=== PATIENT | female | born 1990 | race Caucasian/White ===

== ENCOUNTER 2020-04-23 18:56 | Inpatient (IN) | payer MEDICAID ==
[~2020-04-23] VITALS: Ht 172.7 cm; Wt 104.3 kg
--- NOTE | ~2020-04-23 | EC ---
PATIENT:KIRILL NORTON DATE OF SERVICE: 04/23/20 SEX: F MEDICAL RECORD: [id number] DATE OF : [birth year] LOCATION:[facility] AGE OF PATIENT: 29 ADMISSION DATE: 04/23/20 REFERRING PHYSICIAN: INTERPRETING PHYSICIAN: SEBASTIÁN GARCIA MD ECHOCARDIOGRAM REPORT ECHO CHARGES 4 ECHO COMPLETE Date: 04/24/20 CLINICAL DIAGNOSIS: ASSESS FOR VEGATATION/ ABCESS IN R LEG ECHOCARDIOGRAPHIC MEASUREMENTS (adult normal given) AC root (d.<3.7cm) 3.1 cm LV Septum d (<1.2 cm> 1.0 cm Valve Excursion 1.2 cm LV Septum (systole) 1.2 cm Left Atria (s.<4.0cm> 4.0 cm LVPW d(<1.2cm) 1.4 cm RV (d.<2.3cm) 4.2 cm LVPW (sytole) 1.6 cm LV diastole(<5.6CM) 4.4 cm MV E-F(>70mm/sec) cm LV systole 3.0 cm LVOT Diameter 1.8 cm MV exc.(>10mm) 1.8 cm Est.ejection fraction (50-75%) % DOPPLER: LVIT cm/sec A 54.0 cm/sec E 99.0 cm/sec LA cm/sec RVSP 17 mmHg LVOT 116 cm/sec AOP1/2T m/s Asc. Ao 118 cm/sec RVOT 83 cm/sec RA cm/sec PA 117 cm/sec AV Gradient Peak 5.57 mmHg AV Mean 3.22 mmHg AV Area 3.0 cm MV Gradient Peak 6.54 mmHg MV Mean 2.66 mmHg MV Area cm COMMENTS: Ramp Service Man: 2 SABRINA STEINER Call Center Associate: 3 Dr. Yeung TAPE# PACS Pericardial Effusion N DATE OF SERVICE: Adequate 2D, color flow imaging, spectral Doppler, and M-Mode. No LVH. LV internal dimension is normal. Wall motion is normal. EF is greater than or equal to 55%. Aortic valve is tricuspid with good valve excursion. No evidence of stenosis by Doppler interrogation. Left atrium is normal. Mitral valve shows no prolapse. Trivial MR. Right-sided chambers are grossly normal. Trivial TR. No evidence of vegetation in all 4 cardiac valves. ECHOCARDIOGRAM REPORT [id number] KIRILL NORTON TRANSINT:[id number] Voice Confirmation ID: [id number] DOCUMENT ID: [id number] SEBASTIÁN GARCIA MD CC: [id number] DICTATION DATE: 04/25/20 100 MEDICAL INSURANCE CODER: 04/25/20 1348 ADM IN [facility] [address] [id number]
--- NOTE | ~2020-04-23 | OP ---
PATIENT NAME: KIRILL NORTON MEDICAL RECORD: [id number] :86 LOCATION:[id number] ADMISSION DATE:04/23/20 SURGEON: EPHRAIM PAULINO MD DATE OF OPERATION: 04/24/2020 PREOPERATIVE DIAGNOSES: 1. Cellulitis/abscess of the right lower extremity. 2. Anxiety disorder. POSTOPERATIVE DIAGNOSES: 1. Cellulitis/abscess of the right lower extremity. 2. Anxiety disorder. PROCEDURE: I&D of the right lower extremity abscess. SURGEON: Ephraim Paulino MD REPORT OF PROCEDURE: The patient's right medial calf was prepped and draped in sterile fashion. A 10 mL of 1% lidocaine with epinephrine was infused into the surrounding tissues. A transverse incision was made overlying the area of necrotic fluctuance and there was a perales of purulent material. Cultures were taken times 2. We then irrigated out the wound with peroxide and packed the wound with peroxide-soaked 4 x 4s. A dry 4 x 4 was applied over this followed by tape. COMPLICATIONS: None. CONDITION: Stable. ANESTHESIA: Local. BLOOD LOSS: Minimal. Procedure done at the bedside. TRANSINT:[id number] Voice Confirmation ID: [id number] DOCUMENT ID: [id number] EPHRAIM PAULINO MD CC: [id number] DICTATION DATE: 04/24/20 1205 DRUM DRIER OPERATOR: 04/24/20 1610 ADM IN [place] [place] [address] [place] [address]
[2020-04-23] MEDS ORDERED: BUSPAR5 MG PO (19:05)
[2020-04-23 19:30] LABS: BASOPHILS 0.1 % (0-2); EOSINOPHILS 0.7 % (0-7); IMMATURE GRANULOCYTES 0.1 % (0-5); LYMPHOCYTES 11.7 % (15-50); MCH 29.9 pg (26.0-34.0); MCHC 32.6 g/dL (31.0-37.0); MCV 91.7 fL (80.0-100.0); MEAN PLATELET VOLUME 9.4 fL (7.4-10.4); NEUTROPHILS 81.4 % (40-80); RBC 4.69 10x6/uL (4.00-5.40); RDW 13.8 % (11.5-14.5); WBC 13.5 10x3/uL (4.8-10.8)
[2020-04-23 19:38] LABS: ANION GAP 10.5 mmol/L (8-16); CARBON DIOXIDE 28.3 mmol/L (21.0-32.0); POTASSIUM - SERUM 3.8 mmol/L (3.5-5.1)
[2020-04-23 19:44] LABS: ALBUMIN 3.7 g/dL (3.4-5.0); BILIRUBIN - TOTAL 0.33 mg/dL (0.2-1.3)
[2020-04-23 19:45] LABS: HCG SERUM NEGATIVE (NEGATIVE)
[2020-04-23 19:53] LABS: PLATELET COUNT 316 10x3/uL (130-400)
[2020-04-23 21:19] LABS: APTT 30.2 SECONDS (22.8-39.4); INR 0.99 (0.85-1.17)
[2020-04-23 22:19] LABS: UDS - AMPHET POSITIVE QUAL (NEGATIVE); UDS - BARB NEGATIVE QUAL (NEGATIVE); UDS - BENZO NEGATIVE QUAL (NEGATIVE); UDS - COCAINE NEGATIVE QUAL (NEGATIVE); UDS - OPIATE NEGATIVE QUAL (NEGATIVE); UDS - PCP NEGATIVE QUAL (NEGATIVE); UDS - THC NEGATIVE QUAL (NEGATIVE)
[2020-04-23] MEDS ORDERED: BUSPIRONE HCL30 MG PO (23:05)
[2020-04-23] MEDS ORDERED: GABAPENTIN300 MG PO (23:05)
[2020-04-23] MEDS ORDERED: HYDROXYZINE HCL50 MG PO (23:06)
[2020-04-23 23:34] VITALS: BP 129/80; Ht 172.7 cm; Wt 104.3 kg
[2020-04-24] VITALS: BP 129/80
[2020-04-24 04:00] VITALS: BP 123/57
[2020-04-24 05:08] LABS: HEMATOCRIT 37.7 % (36.0-48.0); HEMOGLOBIN 12.2 g/dL (12-16); IMMATURE GRANULOCYTES 0.2 % (0-5); MCH 29.4 pg (26.0-34.0); MCHC 32.4 g/dL (31.0-37.0); MCV 90.8 fL (80.0-100.0); MEAN PLATELET VOLUME 9.6 fL (7.4-10.4); PLATELET COUNT 309 10x3/uL (130-400); RBC 4.15 10x6/uL (4.00-5.40); RDW 13.7 % (11.5-14.5); WBC 12.1 10x3/uL (4.8-10.8)
[2020-04-24 05:20] LABS: EOSINOPHILS 2 % (0-7); LYMPHOCYTES 18 % (15-50); MONOCYTES 6 % (2-11); NEUTROPHILS 72 % (40-80); PLATELET ESTIMATE NORMAL
[2020-04-24 05:34] LABS: ALKALINE PHOSPHATASE 70 U/L (30-120); ALT (SGPT) 21 U/L (10-68); BILIRUBIN - TOTAL 0.17 mg/dL (0.2-1.3); CALC OSMOLALITY 276 mosm/kg (275-300); CALCIUM 8.2 mg/dL (8.5-10.1); CARBON DIOXIDE 26.6 mmol/L (21.0-32.0); CHLORIDE - SERUM 105 mmol/L (98-107); CREATININE - SERUM 0.8 mg/dL (0.6-1.3); GLUCOSE 122 mg/dL (74-106); MAGNESIUM - SERUM 1.8 mg/dL (1.8-2.4); POTASSIUM - SERUM 3.6 mmol/L (3.5-5.1); PROTEIN - SERUM 6.7 g/dL (6.4-8.2); SODIUM 138 mmol/L (136-145); UREA NITROGEN 13 mg/dL (7-18); eGFR NON AFRICAN AMERICAN 89 mL/min (90-120)
--- NOTE | 2020-04-24 08:17 | NUR ---
AWAKE AND ALERT. ORIENTED X3. NO C/O AT THIS TIME. REPORTS PAIN TO RIGHT LEG AT LEVEL 2. WILL MONITOR. LUNGS ARE CLEAR BILATERALLY NO COUGH NOTED. SKIN IS INTACT WITHOUT REDNESS EXCEPT WOUND TO RIGHT LANDA AREA WHICH HAS A DRY INTACT DRESSING IN PLACE. IV TO LEFT WRIST IS PATENT WITHOUT REDNESS AT INSERTION SITE. BREAKFAST SERVED IN ROOM. DENIES NEEDS. ICE PLACED TO RIGHT LEG FOR SLIGHT EDEMA. WILL MONITOR.
[2020-04-24 08:30] VITALS: BP 114/64
--- NOTE | 2020-04-24 10:10 | NUR ---
UP TO BR. REQUESTED AND GIVEN 4MG MORPHINE SLOW IVP FOR C/O RIGHT LEG PAIN LEVEL 7. WILL MONITOR.
--- NOTE | 2020-04-24 11:30 | NUR ---
DR PAULINO HERE PERFORMING I&D TO RIGHT LOWER EXTREMETY. SPECIMEN SENT TO LAB.
[2020-04-24 12:30] VITALS: BP 115/71
--- NOTE | 2020-04-24 14:17 | NUR ---
REQUESTED AND GIVEN 4MG MORPHINE SLOW IVP FOR C/O RIGHT LE PAIN LEVEL 10. WILL MONITOR.
--- NOTE | 2020-04-24 14:55 | NUR ---
RESTING QUIETLY IN BED. DENIES NEEDS.
--- NOTE | 2020-04-24 17:30 | NUR ---
UPSET AND ROCKING BACK AND FORTH ON BED CRYING. "I WANT TO GO HOME." ENCOURAGED TO STAY AND GET ANTIBIOTICS SHE NEEDS SO HER LEG CAN HEAL. PRODUCTION CLERKS SUPERVISOR NOTIFIED AND SPOKE WITH ALICIA RESENDIZ. WAITING ON FURTHER ORDERS FROM HER. WILL MONITOR.
[2020-04-24 17:39] VITALS: BP 112/70
--- NOTE | 2020-04-24 19:00 | NUR ---
BEDSIDE REPORT RECEIVED AND CARE OF PT ASSUMED. PT LYING IN SUPINE POSITION...C/O MORPHINE CAUSING ITCHING AND REQUESTING MED FOR ANXIETY.
--- NOTE | 2020-04-24 19:57 | NUR ---
GAVE DILAUDID AND BENADRYL PER NEW ORDERS. STARTED IV FLUIDS AND IV ABX. WILL MONITOR FOR NEEDS.
[2020-04-24 20:00] VITALS: BP 123/77
--- NOTE | 2020-04-24 20:30 | NUR ---
GAVE ZOFRAN IVP PER REQUEST FOR NAUSEA.
--- NOTE | 2020-04-24 20:40 | NUR ---
CHANGED OUTER DRESSING ON RIGHT CALF IT WAS SOAKED WITH BLOOD....PACKING UNDISTURBED.
--- NOTE | 2020-04-24 21:20 | NUR ---
GAVE VANILLA ICE CREAM X2 FOR HS SNACK.
[2020-04-25] VITALS: BP 124/61
[2020-04-25 04:00] VITALS: BP 119/59
[2020-04-25 05:35] LABS: BASOPHILS 0.3 % (0-2); EOSINOPHILS 1.8 % (0-7); HEMOGLOBIN 11.4 g/dL (12-16); IMMATURE GRANULOCYTES 0.3 % (0-5); LYMPHOCYTES 33.3 % (15-50); MCH 29.6 pg (26.0-34.0); MCHC 32.6 g/dL (31.0-37.0); MCV 90.9 fL (80.0-100.0); MEAN PLATELET VOLUME 9.7 fL (7.4-10.4); MONOCYTES 6.2 % (2-11); NEUTROPHILS 58.1 % (40-80); PLATELET COUNT 298 10x3/uL (130-400); RBC 3.85 10x6/uL (4.00-5.40); RDW 13.7 % (11.5-14.5)
[2020-04-25 05:42] LABS: WBC 7.7 10x3/uL (4.8-10.8)
[2020-04-25 06:08] LABS: ALBUMIN 2.6 g/dL (3.4-5.0); ALKALINE PHOSPHATASE 62 U/L (30-120); ALT (SGPT) 18 U/L (10-68); BILIRUBIN - TOTAL 0.17 mg/dL (0.2-1.3); CALC OSMOLALITY 272 mosm/kg (275-300); CALCIUM 8.3 mg/dL (8.5-10.1); CARBON DIOXIDE 25.4 mmol/L (21.0-32.0); CHLORIDE - SERUM 106 mmol/L (98-107); CREATININE - SERUM 0.6 mg/dL (0.6-1.3); GLUCOSE 91 mg/dL (74-106); MAGNESIUM - SERUM 1.8 mg/dL (1.8-2.4); PROTEIN - SERUM 6.2 g/dL (6.4-8.2); SODIUM 138 mmol/L (136-145); eGFR NON AFRICAN AMERICAN > 90 mL/min (90-120)
[2020-04-25 06:10] LABS: UREA NITROGEN 5 mg/dL (7-18)
--- NOTE | 2020-04-25 06:20 | NUR ---
GAVE SANDWICH TRAY AND VANILLA ICE CREAM FOR SNACK.
--- NOTE | 2020-04-25 06:24 | NUR ---
MAG LEVEL 1.8 WITH AM LABS REQUIRING COVERAGE WITH 400 MG MAG OX Q4HR X2 DOSES PER THE ELECTROLYTE PROTOCAL. FIRST DOSE GIVEN.
[2020-04-25 08:29] VITALS: BP 111/59
--- NOTE | 2020-04-25 08:59 | NUR ---
AWAKE AND ALERT. ORIENTED X3. DR PAULINO HERE CHANGING DRESSING TO RIGHT LEG. PATIENT REQUESTED AND GIVEN 0.5MG DILAUDID SLOW IVP FOR C/O PAIN LEVEL 9. ALSO REQUESTED AND GIVEN 25MG BENEDRYL PO FOR C/O ITCHING. WILL MONITOR. LUNGS ARE CLEAR BILATERALLY, NO COUGH NOTED. SKIN IS INTACT WITHOUT REDNESS OTHER THAN WOUND TO RIGHT LOWER LEG WHICH HAS A DRY INTACT DRESSING IN PLACE. IV TO LEFT WRIST IS PATENT WITHOUT REDNESS AT INSERTION SITE. DENIES NEEDS. BREAKFAST SERVED IN ROOM.
--- NOTE | 2020-04-25 10:09 | NUR ---
RESTING QUIETLY IN BED WITH EYES CLOSED.
[2020-04-25 12:14] VITALS: BP 123/53
[2020-04-25 16:20] VITALS: BP 119/52
--- NOTE | 2020-04-25 16:30 | NUR ---
IV TO LEFT WRIST DANGLING. D/C WITH CATHETER INTACT. NO ATTEMPT TO RESITE AT THIS TIME POSSIBLE GOING HOME.
[2020-04-25] MEDS ORDERED: BACTRIM DS TAB1 EAC1 PO (16:45)
--- NOTE | 2020-04-25 17:15 | NUR ---
DISCHARGED TO HOME AMBULATORY WITH FAMILY. DISCHARGE INSTRUCTIONS GIVEN BOTH VERBALLY AND WRITTEN. ALL QUESTIONS ANSWERED. PATIENT VERBALIZED UNDERSTANDING OF SAME. NEEDED PRESCRIPTIONS ESCRIBED TO PHARMACY OF CHOICE. WAITING ON RIDE TO D/C HOME.
--- NOTE | 2020-04-25 19:44 | NUR ---
PT ESCORTED TO ER EXIT VIA WHEELCHAIR TO AWAITING VEHICLE. TOLD TO CALL WITH ANY PROBLEMS OR CONCERNS.
== END 2020-04-25 19:35 | disposition home or self-care (01) | DRG 603 ==
LOC: D.ER 18:56 → D.MS 20:51
PROVIDERS: Family Medicine; ADMIT Family Medicine; ATTEND Family Medicine
PROC: 0Y9H3ZZ Drainage of Right Lower Leg, Percutaneous Approach (ICD-10-PCS; principal; 2020-04-24)
DX: L03.115 Cellulitis of right lower limb (principal); F17.203 Nicotine dependence unspecified, with withdrawal; L02.415 Cutaneous abscess of right lower limb; F15.10 Other stimulant abuse, uncomplicated; D72.829 Elevated white blood cell count, unspecified; F41.9 Anxiety disorder, unspecified